=== PATIENT | female | born 2005 | race Caucasian/White ===

== ENCOUNTER 2024-06-06 19:47 | Inpatient (IN) | payer MEDICAID, SELFPAY ==
[2024-06-06 19:43] VITALS: BMI 32.6
[2024-06-06 20:08] VITALS: RESP 16; TEMP 36.5
[2024-06-06 20:09] VITALS: BP 118/63; PULSE 79; O2SAT 85
[2024-06-06 20:33] LABS: Absolute Lymphocyte Count 2.49 X10^3/uL (0.83-4.51); Absolute Neutrophil Count 9.6 X10^3/uL (2.0-7.7); Basophil# 0.03 X10^3/uL; Basophil% 0.2 % (0-1); Eosinophil# 0.06 X10^3/uL; Eosinophils% 0.5 % (0-5); Hematocrit 31.1 % (37-47); Hemoglobin 10.8 g/dL (12.0-15.0); Lymphocyte # 2.49 X10^3/ul (0.83-4.51); Lymphocyte % 19.1 % (19-41); Mean Corp Hgb Conc 34.7 g/dL (32-36); Mean Corpuscular Hgb 31.6 pg (27.0-32.0); Mean Corpuscular Volume 90.9 fL (81-99); Mean Platelet Vol. 9.5 fl (6.2-12.0); Monocyte# 0.71 X10^3/uL; Monocyte% 5.4 % (0-10); NRBC Flagged by Analyzer 0 % (0-5); Neutrophil # 9.64 X10^3/uL (2.7-7.7); Neutrophil % 73.8 % (47-70); Platelet Count 362 K/mm3 (150-450); RBC Distribution Width CV 12.9 % (11.6-14.6); RBC Distribution Width SD 41.9 fl (35.1-43.9); Red Blood Count 3.42 M/mm3 (4.2-5.4); White Blood Count 13.1 K/mm3 (4.4-11.0)
[2024-06-06] MEDS: Acetaminophen 500 MG Tablet PO (20:56)
[2024-06-06] MEDS: 0.9% Saline Lock 10 ML Syringe IV ×2 (21:05→23:00)
[2024-06-06 21:07] LABS: Syphilis Antibodies Non-reactive
[2024-06-06] MEDS: Penicillin G Pot 5,000,000 UNITS in 0.9% Normal Saline (100mL MB+) 100 ML 150 UNITS IV (23:00)
[2024-06-06 23:24] LABS: Amphetamine Urine VISTA NEGATIVE (<1000 ng/mL); Barbiturate Urine VISTA NEGATIVE (< 200 ng/mL); Benzodiazepine Urine VISTA NEGATIVE (< 200 ng/mL); Cocaine Urine VISTA NEGATIVE (< 300 ng/mL); Ecstacy Urine VISTA NEGATIVE (< 500 ng/mL); Methadone Urine VISTA NEGATIVE (< 300 ng/mL); PCP Urine VISTA NEGATIVE (< 25 ng/mL); THC Urine VISTA POSITIVE (< 50 ng/mL); Vista UDS pH Range 7
[2024-06-06] MEDS: Mag Hydrox/Al Hydrox/Simeth 30 ML UDC PO (23:46)
[2024-06-07] VITALS (82 sets, daily range): BP systolic 88–160; BP diastolic 43–80; PULSE 56–126; RESP 16–18; TEMP 35.8–37; O2SAT 88–100
[2024-06-07] MEDS: Lactated Ringers 1,000 ML 50 ML IV (01:15)
[2024-06-07] MEDS: Oxytocin 15 Units/NS 250ml 15 UNITS/250 ML IV.SOLN 2 UNITS IV (01:16)
[2024-06-07] MEDS: Penicillin G 3,000,000 Units 50 ML 100 UNITS IV ×5 (01:58→20:45)
[2024-06-07] MEDS: Mag Hydrox/Al Hydrox/Simeth 30 ML UDC PO (06:37)
--- NOTE | 2024-06-07 08:01 | PCM.HP.OB ---
HPI - General General Date of Admission: 06/06/24 HPI Narrative JAMILA FAYE, is a 19 F who presents for induction. Maternal Data Information YESSICA Calculator Estimated Delivery Date Method Current WG Current Estimate 06/13/24 [facility] 39w [facility] History Depression Home Medications ?Medication ?Instructions ?Recorded ?Last Taken ?Type famotidine 10 mg tablet 10 mg PO BID heartburn 06/06/24 06/06/24 08:00 History vits no.130-ferrous fum 1 tab PO DAILY supplement 06/06/24 06/06/24 08:00 History 27 mg iron-folic acid 800 mcg tablet ( Vitamin) Allergy/AdvReac Type Severity Reaction Status Date / Time No Known Allergies Allergy Verified 06/06/24 19:45 Surgical History History of surgery Social History Smoking Status: Current every day smoker History Elective abortions Hx Para 0 Spontaneous abortions Hx # Term Pregnancies Ectopic pregnancies Hx # Pregnancies Multiple births # of living children NST FHR Rate Baby A Baseline: 135 Variability:: Moderate Accelerations:: 15 x 15 Decelerations:: None Uterine Activity:: Quiet Vital Signs Vital Signs Vital Signs: 06/06/24 20:08 06/06/24 20:08 06/06/24 20:08 Temperature 97.7 F L Temperature Source Temporal Pulse Rate Respiratory Rate 16 Blood Pressure BP Systolic BP Diastolic Pulse Ox 06/06/24 20:09 06/06/24 20:09 06/06/24 20:09 Temperature Temperature Source Pulse Rate 79 Respiratory Rate Blood Pressure 118/63 BP Systolic 118 BP Diastolic 63 Pulse Ox 85 06/07/24 00:32 06/07/24 00:32 06/07/24 00:32 Temperature Temperature Source Temporal Pulse Rate 67 Respiratory Rate Blood Pressure 118/62 BP Systolic 118 BP Diastolic 62 Pulse Ox 06/07/24 00:32 06/07/24 00:32 06/07/24 01:30 Temperature 96.5 F L Temperature Source Pulse Rate Respiratory Rate 16 Blood Pressure 117/65 BP Systolic 117 BP Diastolic 65 Pulse Ox 06/07/24 01:30 06/07/24 01:30 06/07/24 01:30 Temperature Temperature Source Temporal Pulse Rate 65 Respiratory Rate 16 Blood Pressure BP Systolic BP Diastolic Pulse Ox 06/07/24 01:30 06/07/24 02:26 06/07/24 02:27 Temperature 97.5 F L Temperature Source Pulse Rate Respiratory Rate 16 Blood Pressure 113/62 BP Systolic 113 BP Diastolic 62 Pulse Ox 06/07/24 02:27 06/07/24 03:26 06/07/24 03:26 Temperature Temperature Source Temporal Pulse Rate 61 Respiratory Rate Blood Pressure 114/55 L BP Systolic 114 BP Diastolic 55 Pulse Ox 06/07/24 03:26 06/07/24 03:26 06/07/24 03:26 Temperature 98.5 F Temperature Source Pulse Rate 58 L Respiratory Rate 16 Blood Pressure BP Systolic BP Diastolic Pulse Ox 06/07/24 04:25 06/07/24 04:25 06/07/24 04:25 Temperature Temperature Source Pulse Rate 75 Respiratory Rate 16 Blood Pressure 115/56 L BP Systolic 115 BP Diastolic 56 Pulse Ox 06/07/24 05:30 06/07/24 05:30 06/07/24 05:30 Temperature 97.6 F L Temperature Source Temporal Pulse Rate Respiratory Rate 16 Blood Pressure BP Systolic BP Diastolic Pulse Ox 06/07/24 05:31 06/07/24 05:31 06/07/24 05:31 Temperature Temperature Source Pulse Rate 56 L 57 L Respiratory Rate Blood Pressure 123/71 H BP Systolic 123 BP Diastolic 71 Pulse Ox 06/07/24 05:31 06/07/24 06:40 06/07/24 06:41 Temperature Temperature Source Pulse Rate Respiratory Rate 16 Blood Pressure 118/73 BP Systolic 118 BP Diastolic 73 Pulse Ox 99 06/07/24 06:41 06/07/24 06:41 Temperature Temperature Source Pulse Rate 61 Respiratory Rate 16 Blood Pressure BP Systolic BP Diastolic Pulse Ox Weight Weight: 196 lb 6.91 oz Body Mass Index (BMI) 32.6 Physical Exam Const alert, oriented x3 and no apparent distress GI soft to palpation, non-tender and non-distended Inspection: gravid external exam normal Narrative: cvx - 1/50/-3 Labs Labs Labs: Blood Type A POSITIVE Antibody Screen NEGATIVE Hct 31.1 % (37-47) L Hgb 10.8 g/dL (12.0-15.0) L Syphilis Total Ab Non-reactive Assessment & Plan (1) 39 weeks gestation of : COMMENT: @ 39 weeks (2) IUGR (intrauterine growth restriction): PLAN: Plan Admit to L&D. Induction - intracervical childress placed. Will start pitocin. IUGR - EFW at 9% with AC at 5%. GBS positive - pcn per protocol. Pain - epidural as desired.
[2024-06-07] MEDS: LACTATED RINGERS 500 ML 999 ML IV ×2 (11:13→16:58)
[2024-06-07] MEDS: fentaNYL-bupivacaine (epidural) 100 ML BAG EPIDURAL ×2 (11:50→16:41)
--- NOTE | 2024-06-07 13:06 | PCM.PN.OB ---
Subjective Subjective AROM for clear fluid. 3/60/-3 CAT 1 q 2-3 Objective Data Objective Data Vital Signs: Vital Signs Temp Pulse Resp BP Pulse Ox 98.2 F 73 16 115/56 L 98 06/07/24 11:55 06/07/24 12:19 06/07/24 12:19 06/07/24 12:19 06/07/24 12:19 Weight: 89.1 kg Body Mass Index (BMI) 32.6 Intake & Output: Intake and Output for Last 24 Hours 06/05/24 06/06/24 06/07/24 23:59 23:59 23:59 Intake Total 105 / 105 1179.88 / 1179.88 Output Total 550 / 550 Balance 105 / 105 629.88 / 629.88 Lab / Micro Data 06/06/24 20:20 Labs: Laboratory Results - last 24 hr 06/06/24 20:20: WBC 13.1 H, RBC 3.42 L, Hgb 10.8 L, Hct 31.1 L, MCV 90.9, MCH 31.6, MCHC 34.7, RDW Std Deviation 41.9, RDW Coeff of Tgiist 12.9, Plt Count 362, MPV 9.5, Immature Gran % (Auto) 1.000 H, Neut % (Auto) 73.8 H, Lymph % (Auto) 19.1, [place] % (Auto) 5.4, Eos % (Auto) 0.5, Baso % (Auto) 0.2, Absolute Neuts (auto) 9.6 H, Absolute Lymphs (auto) 2.49, Nucleated RBC % 0, Syphilis Total Ab Non-reactive, Blood Type A POSITIVE, Antibody Screen NEGATIVE 06/06/24 22:00: Urine Opiates Screen NEGATIVE, Urine Methadone Screen NEGATIVE, Ur Barbiturates Screen NEGATIVE, Ur Phencyclidine Scrn NEGATIVE, Ur Amphetamines Screen NEGATIVE, MDMA (Ecstasy) Screen NEGATIVE, U Benzodiazepines Scrn NEGATIVE, Urine Cocaine Screen NEGATIVE, U Cannabinoids Screen POSITIVE H, Ur Drug Screen Comment NST FHR Rate Baby A FHR Category:: Category I Assessment & Plan (1) 39 weeks gestation of : COMMENT: @ 39 weeks (2) IUGR (intrauterine growth restriction):
--- NOTE | 2024-06-07 17:40 | PCM.PN.OB ---
Subjective Subjective heart rate decels with hypotension. IUPC and FSE. + scalp stim with placement. 5/80-1. Pitocin stopped and IVF bolus given. Good recovery to baseline Objective Data Objective Data Vital Signs: Vital Signs Temp Pulse Resp BP Pulse Ox 97.0 F L 73 16 102/55 L 97 06/07/24 17:07 06/07/24 17:32 06/07/24 17:27 06/07/24 17:27 06/07/24 17:32 Weight: 89.1 kg Body Mass Index (BMI) 32.6 Intake & Output: Intake and Output for Last 24 Hours 06/05/24 06/06/24 06/07/24 23:59 23:59 23:59 Intake Total 105 / 105 1638.58 / 1638.58 Output Total 2250 / 2250 Balance 105 / 105 -611.42 / -611.42 Lab / Micro Data 06/06/24 20:20 Labs: Laboratory Results - last 24 hr 06/06/24 20:20: WBC 13.1 H, RBC 3.42 L, Hgb 10.8 L, Hct 31.1 L, MCV 90.9, MCH 31.6, MCHC 34.7, RDW Std Deviation 41.9, RDW Coeff of Tigist 12.9, Plt Count 362, MPV 9.5, Immature Gran % (Auto) 1.000 H, Neut % (Auto) 73.8 H, Lymph % (Auto) 19.1, [place] % (Auto) 5.4, Eos % (Auto) 0.5, Baso % (Auto) 0.2, Absolute Neuts (auto) 9.6 H, Absolute Lymphs (auto) 2.49, Nucleated RBC % 0, Syphilis Total Ab Non-reactive, Blood Type A POSITIVE, Antibody Screen NEGATIVE 06/06/24 22:00: Urine Opiates Screen NEGATIVE, Urine Methadone Screen NEGATIVE, Ur Barbiturates Screen NEGATIVE, Ur Phencyclidine Scrn NEGATIVE, Ur Amphetamines Screen NEGATIVE, MDMA (Ecstasy) Screen NEGATIVE, U Benzodiazepines Scrn NEGATIVE, Urine Cocaine Screen NEGATIVE, U Cannabinoids Screen POSITIVE H, Ur Drug Screen Comment Assessment & Plan (1) 39 weeks gestation of : COMMENT: @ 39 weeks (2) IUGR (intrauterine growth restriction): PLAN: Plan Will restart pit with Cat I
--- NOTE | 2024-06-07 17:42 | PCM.HP.OB ---
HPI - General General Date of Admission: 06/06/24 Date of Service: 06/06/24 Chief Complaint: IUGR HPI Narrative JAMILA FAYE, is a 19 F who presents IOL for IUGR 9%. Cytotec and childress bulb and then pitocin Maternal Data Information YESSICA Calculator Estimated Delivery Date Method Current WG Current Estimate 06/13/24 Manual 39w 1d Final YESSICA: 06/13/24 Gestational age: 39 PFSH PFSH Medical History Depression Home Medications ?Medication ?Instructions ?Recorded ?Last Taken ?Type famotidine 10 mg tablet 10 mg PO BID heartburn 06/06/24 06/06/24 08:00 History vits no.130-ferrous fum 1 tab PO DAILY supplement 06/06/24 06/06/24 08:00 History 27 mg iron-folic acid 800 mcg tablet ( Vitamin) Allergy/AdvReac Type Severity Reaction Status Date / Time No Known Allergies Allergy Verified 06/06/24 19:45 Surgical History History of surgery Social History Smoking Status: Current every day smoker History 1 Elective abortions Hx Para 0 Spontaneous abortions Hx # Term Pregnancies Ectopic pregnancies Hx # Pregnancies Multiple births # of living children NST FHR Rate Baby A FHR Category:: Category I (on admisson) Vital Signs Vital Signs Vital Signs: 06/06/24 20:08 06/06/24 20:08 06/06/24 20:08 Temperature 97.7 F L Temperature Source Temporal Pulse Rate Respiratory Rate 16 Blood Pressure BP Systolic BP Diastolic Pulse Ox 06/06/24 20:09 06/06/24 20:09 06/06/24 20:09 Temperature Temperature Source Pulse Rate 79 Respiratory Rate Blood Pressure 118/63 BP Systolic 118 BP Diastolic 63 Pulse Ox 85 06/07/24 00:32 06/07/24 00:32 06/07/24 00:32 Temperature Temperature Source Temporal Pulse Rate 67 Respiratory Rate Blood Pressure 118/62 BP Systolic 118 BP Diastolic 62 Pulse Ox 06/07/24 00:32 06/07/24 00:32 06/07/24 01:30 Temperature 96.5 F L Temperature Source Pulse Rate Respiratory Rate 16 Blood Pressure 117/65 BP Systolic 117 BP Diastolic 65 Pulse Ox 06/07/24 01:30 06/07/24 01:30 06/07/24 01:30 Temperature Temperature Source Temporal Pulse Rate 65 Respiratory Rate 16 Blood Pressure BP Systolic BP Diastolic Pulse Ox 06/07/24 01:30 06/07/24 02:26 06/07/24 02:27 Temperature 97.5 F L Temperature Source Pulse Rate Respiratory Rate 16 Blood Pressure 113/62 BP Systolic 113 BP Diastolic 62 Pulse Ox 06/07/24 02:27 06/07/24 03:26 06/07/24 03:26 Temperature Temperature Source Temporal Pulse Rate 61 Respiratory Rate Blood Pressure 114/55 L BP Systolic 114 BP Diastolic 55 Pulse Ox 06/07/24 03:26 06/07/24 03:26 06/07/24 03:26 Temperature 98.5 F Temperature Source Pulse Rate 58 L Respiratory Rate 16 Blood Pressure BP Systolic BP Diastolic Pulse Ox 06/07/24 04:25 06/07/24 04:25 06/07/24 04:25 Temperature Temperature Source Pulse Rate 75 Respiratory Rate 16 Blood Pressure 115/56 L BP Systolic 115 BP Diastolic 56 Pulse Ox 06/07/24 05:30 06/07/24 05:30 06/07/24 05:30 Temperature 97.6 F L Temperature Source Temporal Pulse Rate Respiratory Rate 16 Blood Pressure BP Systolic BP Diastolic Pulse Ox 06/07/24 05:31 06/07/24 05:31 06/07/24 05:31 Temperature Temperature Source Pulse Rate 56 L 57 L Respiratory Rate Blood Pressure 123/71 H BP Systolic 123 BP Diastolic 71 Pulse Ox 06/07/24 05:31 06/07/24 06:40 06/07/24 06:41 Temperature Temperature Source Pulse Rate Respiratory Rate 16 Blood Pressure 118/73 BP Systolic 118 BP Diastolic 73 Pulse Ox 99 06/07/24 06:41 06/07/24 06:41 06/07/24 08:06 Temperature Temperature Source Pulse Rate 61 Respiratory Rate 16 Blood Pressure 105/63 BP Systolic 105 BP Diastolic 63 Pulse Ox 06/07/24 08:06 06/07/24 08:06 06/07/24 08:06 Temperature Temperature Source Temporal Pulse Rate 62 Respiratory Rate 16 Blood Pressure BP Systolic BP Diastolic Pulse Ox 06/07/24 08:06 06/07/24 08:06 06/07/24 08:07 Temperature 97.8 F Temperature Source Pulse Rate 65 Respiratory Rate Blood Pressure BP Systolic BP Diastolic Pulse Ox 99 06/07/24 08:07 06/07/24 10:06 06/07/24 10:06 Temperature Temperature Source Pulse Rate 75 Respiratory Rate Blood Pressure 105/61 BP Systolic 105 BP Diastolic 61 Pulse Ox 98 06/07/24 10:06 06/07/24 10:06 06/07/24 10:06 Temperature Temperature Source Temporal Pulse Rate Respiratory Rate 16 Blood Pressure BP Systolic BP Diastolic Pulse Ox 97 06/07/24 10:06 06/07/24 10:06 06/07/24 11:35 Temperature 97.8 F Temperature Source Pulse Rate 78 Respiratory Rate Blood Pressure BP Systolic BP Diastolic Pulse Ox 98 06/07/24 11:35 06/07/24 11:39 06/07/24 11:39 Temperature Temperature Source Pulse Rate 71 Respiratory Rate Blood Pressure 119/68 BP Systolic 119 BP Diastolic 68 Pulse Ox 99 06/07/24 11:39 06/07/24 11:39 06/07/24 11:40 Temperature Temperature Source Pulse Rate 76 Respiratory Rate 16 Blood Pressure BP Systolic BP Diastolic Pulse Ox 98 06/07/24 11:40 06/07/24 11:45 06/07/24 11:45 Temperature Temperature Source Pulse Rate 80 Respiratory Rate Blood Pressure 118/68 BP Systolic 118 BP Diastolic 68 Pulse Ox 100 06/07/24 11:45 06/07/24 11:53 06/07/24 11:53 Temperature Temperature Source Pulse Rate 69 Respiratory Rate Blood Pressure BP Systolic BP Diastolic Pulse Ox 99 100 06/07/24 11:55 06/07/24 11:55 06/07/24 11:55 Temperature Temperature Source Temporal Pulse Rate 71 Respiratory Rate Blood Pressure 122/59 H BP Systolic 122 BP Diastolic 59 Pulse Ox 06/07/24 11:55 06/07/24 11:55 06/07/24 11:55 Temperature 98.2 F Temperature Source Pulse Rate Respiratory Rate 16 Blood Pressure BP Systolic BP Diastolic Pulse Ox 98 06/07/24 11:58 06/07/24 11:58 06/07/24 12:01 Temperature Temperature Source Pulse Rate 72 Respiratory Rate Blood Pressure 111/58 L BP Systolic 111 BP Diastolic 58 Pulse Ox 99 06/07/24 12:01 06/07/24 12:01 06/07/24 12:01 Temperature Temperature Source Pulse Rate 68 Respiratory Rate 16 Blood Pressure BP Systolic BP Diastolic Pulse Ox 99 06/07/24 12:03 06/07/24 12:03 06/07/24 12:05 Temperature Temperature Source Pulse Rate 65 Respiratory Rate Blood Pressure 113/55 L BP Systolic 113 BP Diastolic 55 Pulse Ox 99 06/07/24 12:05 06/07/24 12:05 06/07/24 12:05 Temperature Temperature Source Pulse Rate 70 Respiratory Rate 16 Blood Pressure BP Systolic BP Diastolic Pulse Ox 98 06/07/24 12:08 06/07/24 12:08 06/07/24 12:10 Temperature Temperature Source Pulse Rate 72 Respiratory Rate Blood Pressure 114/57 L BP Systolic 114 BP Diastolic 57 Pulse Ox 99 06/07/24 12:10 06/07/24 12:10 06/07/24 12:10 Temperature Temperature Source Pulse Rate 75 Respiratory Rate 16 Blood Pressure BP Systolic BP Diastolic Pulse Ox 99 06/07/24 12:14 06/07/24 12:14 06/07/24 12:14 Temperature Temperature Source Pulse Rate 81 Respiratory Rate 16 Blood Pressure 117/57 L BP Systolic 117 BP Diastolic 57 Pulse Ox 06/07/24 12:14 06/07/24 12:15 06/07/24 12:15 Temperature Temperature Source Pulse Rate 76 Respiratory Rate Blood Pressure BP Systolic BP Diastolic Pulse Ox 98 99 06/07/24 12:19 06/07/24 12:19 06/07/24 12:19 Temperature Temperature Source Pulse Rate 73 Respiratory Rate 16 Blood Pressure 115/56 L BP Systolic 115 BP Diastolic 56 Pulse Ox 06/07/24 12:19 06/07/24 13:10 06/07/24 13:10 Temperature Temperature Source Temporal Pulse Rate Respiratory Rate Blood Pressure 112/63 BP Systolic 112 BP Diastolic 63 Pulse Ox 98 06/07/24 13:10 06/07/24 13:10 06/07/24 13:10 Temperature Temperature Source Pulse Rate 69 Respiratory Rate 16 Blood Pressure BP Systolic BP Diastolic Pulse Ox 99 06/07/24 13:10 06/07/24 13:11 06/07/24 13:11 Temperature 98.0 F Temperature Source Pulse Rate 68 Respiratory Rate Blood Pressure BP Systolic BP Diastolic Pulse Ox 99 06/07/24 14:30 06/07/24 14:30 06/07/24 14:30 Temperature Temperature Source Temporal Pulse Rate Respiratory Rate 16 Blood Pressure BP Systolic BP Diastolic Pulse Ox 100 06/07/24 14:30 06/07/24 14:31 06/07/24 14:31 Temperature 97.4 F L Temperature Source Pulse Rate 64 Respiratory Rate Blood Pressure 106/52 L BP Systolic 106 BP Diastolic 52 Pulse Ox 06/07/24 14:31 06/07/24 15:17 06/07/24 15:17 Temperature Temperature Source Pulse Rate 67 Respiratory Rate Blood Pressure BP Systolic BP Diastolic Pulse Ox 100 100 06/07/24 15:27 06/07/24 15:27 06/07/24 15:28 Temperature Temperature Source Pulse Rate 88 78 Respiratory Rate Blood Pressure 94/45 L BP Systolic 94 BP Diastolic 45 Pulse Ox 06/07/24 15:28 06/07/24 15:29 06/07/24 15:29 Temperature Temperature Source Pulse Rate 78 Respiratory Rate Blood Pressure 100/56 L BP Systolic 100 BP Diastolic 56 Pulse Ox 100 06/07/24 16:56 06/07/24 16:56 06/07/24 16:56 Temperature Temperature Source Pulse Rate 59 L Respiratory Rate 16 Blood Pressure 88/43 L BP Systolic 88 BP Diastolic 43 Pulse Ox 06/07/24 16:56 06/07/24 16:57 06/07/24 16:57 Temperature Temperature Source Pulse Rate 61 Respiratory Rate Blood Pressure BP Systolic BP Diastolic Pulse Ox 95 99 06/07/24 16:59 06/07/24 16:59 06/07/24 16:59 Temperature Temperature Source Pulse Rate 64 Respiratory Rate Blood Pressure 95/52 L BP Systolic 95 BP Diastolic 52 Pulse Ox 88 06/07/24 16:59 06/07/24 16:59 06/07/24 17:02 Temperature Temperature Source Pulse Rate 72 Respiratory Rate 16 Blood Pressure BP Systolic BP Diastolic Pulse Ox 95 06/07/24 17:02 06/07/24 17:06 06/07/24 17:06 Temperature Temperature Source Pulse Rate 74 Respiratory Rate Blood Pressure BP Systolic BP Diastolic Pulse Ox 100 93 06/07/24 17:07 06/07/24 17:07 06/07/24 17:07 Temperature Temperature Source Pulse Rate 73 Respiratory Rate Blood Pressure 95/51 L BP Systolic 95 BP Diastolic 51 Pulse Ox 91 06/07/24 17:07 06/07/24 17:07 06/07/24 17:07 Temperature Temperature Source Temporal Pulse Rate 78 Respiratory Rate 16 Blood Pressure BP Systolic BP Diastolic Pulse Ox 06/07/24 17:07 06/07/24 17:07 06/07/24 17:11 Temperature 97.0 F L Temperature Source Pulse Rate Respiratory Rate Blood Pressure 96/53 L BP Systolic 96 BP Diastolic 53 Pulse Ox 95 06/07/24 17:11 06/07/24 17:11 06/07/24 17:11 Temperature Temperature Source Pulse Rate 73 Respiratory Rate 16 Blood Pressure BP Systolic BP Diastolic Pulse Ox 95 06/07/24 17:12 06/07/24 17:12 06/07/24 17:15 Temperature Temperature Source Pulse Rate 73 77 Respiratory Rate Blood Pressure BP Systolic BP Diastolic Pulse Ox 95 06/07/24 17:15 06/07/24 17:17 06/07/24 17:17 Temperature Temperature Source Pulse Rate 75 Respiratory Rate Blood Pressure BP Systolic BP Diastolic Pulse Ox 94 95 06/07/24 17:18 06/07/24 17:18 06/07/24 17:18 Temperature Temperature Source Pulse Rate 70 Respiratory Rate 16 Blood Pressure 101/54 L BP Systolic 101 BP Diastolic 54 Pulse Ox 06/07/24 17:18 06/07/24 17:20 06/07/24 17:20 Temperature Temperature Source Pulse Rate 70 Respiratory Rate Blood Pressure BP Systolic BP Diastolic Pulse Ox 96 94 06/07/24 17:21 06/07/24 17:21 06/07/24 17:21 Temperature Temperature Source Pulse Rate 72 Respiratory Rate 16 Blood Pressure 97/52 L BP Systolic 97 BP Diastolic 52 Pulse Ox 06/07/24 17:21 06/07/24 17:22 06/07/24 17:22 Temperature Temperature Source Pulse Rate 72 Respiratory Rate Blood Pressure BP Systolic BP Diastolic Pulse Ox 96 95 06/07/24 17:27 06/07/24 17:27 06/07/24 17:27 Temperature Temperature Source Pulse Rate 75 Respiratory Rate Blood Pressure 102/55 L BP Systolic 102 BP Diastolic 55 Pulse Ox 96 06/07/24 17:27 06/07/24 17:27 06/07/24 17:32 Temperature Temperature Source Pulse Rate 73 Respiratory Rate 16 Blood Pressure BP Systolic BP Diastolic Pulse Ox 97 06/07/24 17:32 Temperature Temperature Source Pulse Rate Respiratory Rate Blood Pressure BP Systolic BP Diastolic Pulse Ox 97 Weight Weight: 89.1 kg Body Mass Index (BMI) 32.6 Physical Exam Const alert and no apparent distress General Appearance: cooperative HEENT normocephalic Resp normal respiratory effort Cardio regular rate GI soft to palpation GI Narrative: gravid, nontender, appropriate for gestational age Extremity no calf tenderness General Extremity: edema Skin no wounds Rashes: No rashes noted Psych activity/motor behavior normal Labs Labs Labs: Blood Type A POSITIVE Antibody Screen NEGATIVE Hct 31.1 % (37-47) L Hgb 10.8 g/dL (12.0-15.0) L Syphilis Total Ab Non-reactive Assessment & Plan (1) 39 weeks gestation of : COMMENT: @ 39 weeks (2) IUGR (intrauterine growth restriction):
[2024-06-07] MEDS: Lactated Ringers 1,000 ML 200 ML IV (19:09)
[2024-06-07] MEDS: Ondansetron 4 MG/2 ML Vial IV (20:49)
[2024-06-07] MEDS: Oxytocin 10 UNITS/ML Vial IM (22:03)
[2024-06-07] MEDS: Oxytocin 15 Units/NS 250ml 15 UNITS/250 ML IV.SOLN 83 UNITS IV (22:03)
--- NOTE | 2024-06-07 22:57 | OB.VAGDELI_ITS ---
Assessment & Plan (1) (spontaneous vaginal delivery): (2) IUGR (intrauterine growth restriction): Maternal Data Information YESSICA Calculator Estimated Delivery Date Method Current WG Current Estimate 06/13/24 Manual 39w 1d Final YESSICA: 06/13/24 Gestational age: 39+1 Vaginal Delivery Maternal Presentation Maternal Presentation: Medically Indicated Induction Maternal Presentation: IUGR Type of Induction: Cervidil, Pitocin, Ty Bulb and Amniotomy Vaginal Delivery Information Procedure Performed: Spontaneous Vaginal Delivery Surgeon/Practitioner: Jovanna Tesfaye Date of Procedure: 06/07/24 Pre-Procedure Diagnosis: IUGR Post-Procedure Diagnosis: Type of anesthesia: Epidural Estimated Blood Loss: 150 cc Time of Delivery: 22:02 Findings Description of procedure: After Cytotec, Ty and Pitocin the patient progressed to complete and pushed over an intact perineum to delivery the head OA. A cord was around the neck x 1 and reduced. The anterior and posterior shoulders delivered easily. The infant cried upon delivery and was placed on the maternal abdomen. The cord was clamped and cut. The placenta delivered with gentle traction. A 1st degree perineal lace ration was repaired with 2-0 Vicryl. Presentation: Vertex and MISSY Amniotic Membrane Rupture Type: Artificial Amniotic Fluid Description: Clear Placental Delivery Description: Spontaneous Placenta Disposition: [facility] Cord Vessel Description: 3 Vessels Cord Entanglement: Around neck x 1, loose Nuchal Cord Compression: Without compression Infant A Gender: Female (1 minute): 8 (5 minute): 9 Delayed Cord Clamping: Yes Post Vaginal Deli Medications given after delivery: IV Pitocin and IM Pitocin Episiotomy Description: None Laceration: 1st degree Complication Complications: No
[2024-06-08] VITALS (12 sets, daily range): BP systolic 105–122; BP diastolic 54–65; PULSE 67–91; RESP 15–18; TEMP 36.1–37.1; O2SAT 90–99
--- NOTE | 2024-06-08 06:59 | PCM.PN.OB ---
Subjective Subjective Doing well. Ambulating and voiding without difficulty. Mild lochia. Breast feeding. Objective Data Objective Data Vital Signs: Vital Signs Temp Pulse Resp BP Pulse Ox O2 Del Method 97 F L 68 16 116/59 L 99 Room Air 06/08/24 04:00 06/08/24 04:02 06/08/24 04:00 06/08/24 04:01 06/08/24 04:02 06/08/24 04:00 Oxygen Delivery Method Room Air Weight: 89.1 kg Body Mass Index (BMI) 32.6 Intake & Output: Intake and Output for Last 24 Hours 06/06/24 06/07/24 06/08/24 23:59 23:59 23:59 Intake Total 105 / 105 3022.01 / 3022.01 250 / 250 Output Total 3700 / 3700 500 / 500 Balance 105 / 105 -677.99 / -677.99 -250 / -250 Lab / Micro Data 06/06/24 20:20 ROS Constitutional Constitutional: Denies fatigue, fever(s) or malaise Eyes Eyes: Denies change in vision ENT HEENT: Denies dizziness or headache(s) Cardiovascular Cardiovascular: Denies chest pain, dyspnea or lightheadedness Respiratory/Chest Respiratory/Chest: Denies cough or dyspnea Gastrointestinal Gastrointestinal: Denies change in bowel habits Genitourinary Genitourinary: Denies burning urination or genital lesions Integumentary Integumentary: Denies rash Neurologic Neurologic: Denies confusion, dizziness, headache(s), numbness or weakness Physical Exam Const alert and no apparent distress Narrative: Fundus firm, below umbilicus. Assessment & Plan (1) (spontaneous vaginal delivery): (2) IUGR (intrauterine growth restriction): PLAN: Plan Routine care
[2024-06-08] MEDS: Acetaminophen 500 MG Tablet 1000 MG PO (08:48)
[2024-06-08] MEDS: Ibuprofen 600 MG Tablet PO (14:41)
--- NOTE | 2024-06-08 15:12 | CASEMGMT ---
Social Work Assessment Labor and Delivery Unit Patient Address:[place] [address] Phone number: [phone] Date of Referral: 06/07/24 Time of Referral:? [id number] Referred By: Dr. Jordyn Ryder Date of Intervention: ??06/08/24 Time of Intervention:?1400 Reason for Referral:? tox was positive for THC, on admission Sw completed chart review and acknowledges social work consult due to maternal toxicology being positive for THC. Sw presented to bedside and introduced self to mother of baby (MOB- Lia) and father of baby (FOB- Hermes). Sw completed psychosocial assessment. Both parents present for completion of assessment, until sw asked FOB to step out momentarily to address maternal substance use during . FOB left room respectfully and willingly. History obtained from: medical records, MOB and FOB. Household composition: MOB is currently residing with maternal grandma and her younger sister. FOB does not reside with MOB. baby to be included in residence with MOB when ready for discharge. MOB denies any concerns with housing, stating that it is safe and secure. Patient's parent/guardian status:? Parents report that they met on social media, and have been on-again, off-again for the past three years. baby is first baby for both parents. Parents state that they are not currently together, and are working on a co-parenting plan going forward. While meeting with MOB privately, she denies any domestic violence or intimate partner violence. ? Medical History: LINDA is 19 year old female who is 1, para 0- now 1 following labor and delivery of . LINDA received routine care during with [facility]. LINDA presented to hospital for scheduled induction of labor due to intra uterine growth restriction. Baby was born at 39 weeks gestation via vaginal delivery on 06/07/24. Baby, named Mariposa Solo, was born weighing 5lb 11oz with apgars of 8 and 9 at one and five minutes of life, respectfully. MOB states that she is breast feeding and it is going okay. Baby will be followed by [facility] in [place]. ? Educational Status:? Both parents graduated from high school and did not obtain any college education. Parents deny any issues with reading, learning or comprehension. Financial Status: FOB is employed as a traveling diesel mechanic apprentice, he states that he gets two weeks off of work. LINDA is unemployed at this time and is financially dependent upon her mom. Infant Supplies: LINDA states that she has obtained all necessary baby supplies, including: car seat, safe sleep space, clothes, diapers and wipes. CARLOS does not have all necessary baby supplies, but baby will not be staying with CARLOS for quite some time. Childcare/Caregiver(s):MOB will be the primary caregiver to baby. Transportation:?? CARLOS drives and has reliable means of transportation. LINDA does not drive and relies on maternal grandma for transportation to her doctors appointments. Programs/Agencies Involved: ?LINDA is connected to resources through [employer], including: insurance and food benefits. LINDA was reminded to get baby added to insurance within thirty days. LINDA is also connected to [facility]. ?? Children Services/Legal Issues:??? No prior involvement with children services. Angelita informed MOB of need for to make referral to [facility] due to MOB substance use during . MOB expressed understanding. Behavioral Health Issues: ??Mental Health History: CARLOS denies mental health history. MOB states that she has been diagnosed with anxiety and depression. LINDA is not prescribed any medications to assist with her mental health diagnoses. ??? Substance Use History:?MOB reports to using THC several times throughout the week to assist with nausea. ? Family History:???Parents deny family history of substance use or significant mental health diagnoses. ?? Drug Screens: MOB urine toxicology screen was positive for THC at time of admission. baby's urine screen at time of delivery was negative for all substances, meconium still pending. Family/Social Stressors:? Parents talked openly about the current status of their relationship. LINDA and FOShamar state that they are going into this period not putting any pressure on figuring out what the status is of their relationship. Parents state that they are taking it one day at a time and just working on co-parenting and putting the baby's needs above their own. Support Systems: LINDA states that her mom is her biggest support. Depression/Shaken Baby/Safe Sleeping: . Angelita educated parents on signs and symptoms of baby blues and mood and anxiety disorders to be mindful of during this period. MOB states that if she feels as though she is struggling with her mental health during this period, she feels comfortable talking to her mom about what she is experiencing. MOB also welcome to getting connected with a mental health support person if her mental health is impacting her every day life, or the care that she provides to baby. Sw educated parents on shaken baby prevention and ABCs of safe sleep. ASSESSMENT:? MOB and baby currently admitted following labor and delivery of . MOB observed to provide loving and appropriate hands on care to . MOB was talkative and open to discussing her and FOB current relationship status. MOB has obtained everything that she needs for baby and has natural supports in place. MOB informed of need for sw to make referral to children services due to her substance use of THC during . MOB expressed understanding of this. MOB was receptive to sw involvement. Safe Plan of Care for related to substance use:? MOB states that she plans on continuing to use THC. MOB states that she will not use around baby or when baby is in her primary care. MOB was educated on breast feeding baby while still using marijuana, and educated that THC will transfer to baby through her milk. PLAN:?? No other services requested or indicated. MOB and baby to be discharged when medically ready. Parents were provided literature regarding: signs and symptoms of baby blues and mood and anxiety disorders, Help Me Grow, shaken baby prevention, ABCs of safe sleep and a list of county resources that are available for them should any needs present themselves. Romel Kc, HOSPITAL INTERN, PRINTED CIRCUIT BOARDS SOLDER LEVELER
[2024-06-09 02:39] VITALS: BP 111/62; PULSE 60
[2024-06-09 02:40] VITALS: BP 111/62; PULSE 98; RESP 17; TEMP 36.7; O2SAT 99
--- NOTE | 2024-06-09 07:27 | PCM.DC.SUM ---
Providers Date of Admission: 06/06/24 Primary Care Physician: Fidelia Primary Care Phys Reason For Visit: VAG Diagnosis Discharge Diagnosis (1) (spontaneous vaginal delivery): Status: Acute Code(s): O80 - Encounter for full-term uncomplicated delivery (2) Laceration, obstetrical, first degree: Status: Acute Code(s): O70.0 - First degree perineal laceration during delivery (3) Care and examination of lactating mother: Status: Acute Code(s): Z39.1 - Encounter for care and examination of lactating mother Medications at Discharge Home Medications vits no.130-ferrous fum 27 mg iron-folic acid 800 mcg tablet ( Vitamin) 1 tab PO DAILY supplement 06/06/24 ibuprofen 600 mg tablet 600 mg PO Q6H PRN PRN Pain Score 1-10 #0 tabs 06/09/24 Hospital Course Operations None Procedures None Summary of Care Provided Minutes Spent on Discharge: 15 Hospital Course: Patient had vaginal delivery. Hospital course was uneventful. Physical Exam Narrative Patient seen at bedside. Denies pain. Ambulating and voiding without difficulty. Lochia decreased. Desires discharge home today. Const alert and oriented x3 General Appearance: Negative for in distress HEENT normocephalic Eyes General Eye: normal appearance of both eyes Neck General: normal visual inspection Chest Chest: symmetrical chest wall rise Resp normal respiratory effort and normal air movement Effort and Inspection: symmetric chest movement; Negative for tachypneic Auscultation: clear to auscultation bilaterally Cardio regular rate and regular rhythm Peripheral Pulses: pulses 2+ throughout GI normal to inspection, nondistended, normoactive bowel sounds Narrative: Ice to perineum OB / External & Speculum: vaginal bleeding and other Lochia decreasing Uterus Palpation: uterus fundus firm (Below U) Extremity normal to inspection, full ROM and normal capillary refill Skin no rashes or lesions noted Neuro oriented x3, CN's II-XII intact bilaterally and gait normal Psych mental status grossly normal, thought process normal and activity/motor behavior normal Weight / BMI Weight Weight: 196 lb 6.91 oz Body Mass Index (BMI) 32.6 ABG / Lab / Microbiology Data 06/06/24 20:20 D/C Instructions Discharge Diet: No restrictions Discharge Activity: Return to Normal Activity, No Restrictions, May Drive, May Shower and May Take a Tub Bath (Warm water only. No bath salts, soaps, bubbles) May resume sexual activity in: 6-8 weeks Weight Bearing Status: Weight bearing as tolerated Call your doctor if you observe: Fever of 101 or Higher, Inability to urinate, Using more than 1 pad per hour, Shortness of breath, Dizziness, Chest pain, Calf discomfort and Uncontrolled pain Please Follow Up With: [facility] Natalie CHANG When: 2 weeks in office or virtual Meaningful Use Info Meaningful Use Meaningful Use Diagnoses (Choose all that apply): None applicable Ischemic Stroke Statin Dosing Therapy Reference: STATIN DOSE THERAPY REFERENCE: * Patients > 75 years receive moderate or high dose statin therapy. * Patients 75 years or YOUNGER should receive HIGH intensity statin dose unless contraindicated. You will be required to document reason for non-treatment if statin daily dose does not meet guidelines. HIGH DOSE STATIN THERAPY DAILY Atorvastatin > than or = to 40 mg Rosuvastatin > than or = to 20 mg Amlodipine + Atorvastatin > than or = to 2.5/40 mg Ezetimibe + Simvastatin 10/80 mg Simvastatin 80mg Discharge Plan Admission Admit Date/Time: 06/06/24 19:47 Primary Reason for Your Visit: Labor and Delivery Attending Provider: Jovanna Tesfaye Primary Care Provider: Elmer Physician,Fidelia Primary Discharge Orders/Prescriptions Prescriptions: New ibuprofen 600 mg Tablet 600 mg PO Q6H PRN PRN (Reason: Pain Score 1-10) Qty: 0 0RF Continued Vitamin 27 mg iron- 800 mcg tablet 1 tab PO DAILY Discontinued famotidine 10 mg tablet 10 mg PO BID Referrals / Follow Up: Care Physician,No Primary [Primary Care Provider] - Disposition Disposition (needs filled in before D/C Order can be placed): Home, Self Care
[2024-06-09 08:07] VITALS: BP 111/61; PULSE 57
[2024-06-09 08:14] VITALS: BP 111/61; PULSE 57; RESP 16; TEMP 36.5
--- NOTE | 2024-06-09 10:55 | CASEMGMT ---
Labor and Delivery Dietary Assistant Sw called [facility] and spoke to hotline screener, Mara. Sw informed Mara of mother of baby (MOB- Lia) substance use of THC during . MOB was positive at time of delivery, baby's urine toxicology was negative (meconium still pending). Mara took report and asked to be notified if baby's meconium is positive. Sw to keep look out for those results and will report positive results. MOB and baby to be discharged on this date. Romel Kc, SAMPLE COORDINATOR, AFTER SCHOOL PROGRAM COORDINATOR
[2024-06-09 12:52] VITALS: BP 119/64; PULSE 57
[2024-06-09 13:18] VITALS: BP 119/64; PULSE 57; RESP 16; TEMP 36.6
[2024-06-09] MEDS: Acetaminophen 500 MG Tablet 1000 MG PO (13:31)
--- NOTE | 2024-06-16 10:49 | NURSING ---
F/up phone call performed-- no ans, LVM.
== END 2024-06-09 15:40 | disposition home or self-care (01) | DRG 560 ==
PROVIDERS: Obstetrics & Gynecology; Admitting Provider Obstetrics & Gynecology; Visit Provider Obstetrics & Gynecology
DX: O36.5930 Maternal care for other known or suspected poor fetal growth, third trimester, not applicable or unspecified (principal); Z37.0 Single live birth; O69.81X0 Labor and delivery complicated by cord around neck, without compression, not applicable or unspecified; O70.0 First degree perineal laceration during delivery; O99.820 Streptococcus B carrier state complicating pregnancy; Z3A.39 39 weeks gestation of pregnancy
CPT/HCPCS: 59025; 59050; 80307; 85025; 86780; 86850; 86900; 86901; 99221; J7120; A4216; G0378; J2405